=== PATIENT | female | born 1960 | race Caucasian/White ===

== ENCOUNTER 2023-09-02 08:54 | Emergency (ER) | payer OTHER, SELFPAY ==
--- NOTE | ~2023-09-02 | XR_ITS ---
EXAMINATION: XR ELBOW, RIGHT CLINICAL INFORMATION: Medial pain COMPARISON: None available. TECHNIQUE: AP, lateral, and oblique views of the right elbow. FINDINGS: The bones and soft tissues are normal. No fracture or joint effusion. Alignment is anatomic. Joint spaces are maintained. XR/XR elbow RT min 3V IMPRESSION: Normal right elbow.
[2023-09-02 09:18] VITALS: BP 161/79; PULSE 62; RESP 18; TEMP 36.6; O2SAT 99; BMI 31.6
--- NOTE | 2023-09-02 09:25 | ECG_ITS ---
Test Reason : CHEST PAIN Blood Pressure : / mmHG Vent. Rate : 063 BPM Atrial Rate : 063 BPM P-R Int : 146 ms QRS Dur : 098 ms QT Int : 418 ms P-R-T Axes : 067 -06 055 degrees QTc Int : 427 ms Normal sinus rhythm Minimal voltage criteria for LVH, may be normal variant ( [place] product ) Borderline ECG No previous ECGs available Referred By: Generic ED Physician Electronically Signed By:Ko Maguire
--- NOTE | 2023-09-02 09:25 | PC.NURSE ---
pt states right chest wall pain/r arm/r shoulder pain. tech doing ecg
[2023-09-02 12:04] LABS: MANUAL DIFF FLAG NO
[2023-09-02 12:12] LABS: Basophils Absolute Auto 0.1 X10*3/uL (0.0-0.2); Basophils Percent Auto 0.7 % (0-2); Eosinophils Absolute Auto 0.1 X10*3/uL (0.0-0.4); Eosinophils Percent Auto 1.4 % (0-4); Hematocrit 39.1 % (37.0-47.0); Hemoglobin 12.7 g/dl (12.0-16.0); Imm Gran Abs Auto 0.03 X10*3/uL (0.00-0.03); Imm Gran Pct Auto 0.3 % (0.0-0.4); Lymphocytes Absolute Auto 2.5 X10*3/uL (1.2-4.9); Lymphocytes Percent Auto 28.9 % (20-40); Mean Corpuscular HGB Conc 32.5 g/dl (31.0-35.0); Mean Corpuscular Volume 80.1 fL (80.0-98.0); Mean Platelet Volume 13.2 fL (9.4-12.3); Monocytes Absolute Auto 0.5 X10*3/uL (0.1-1.2); Monocytes Percent Auto 6.1 % (2-11); Neutrophils Absolute Auto 5.4 x10*3/uL (2.0-8.3); Neutrophils Percent Auto 62.6 % (45-73); Platelet Count 183 X10*3/uL (160-400); Red Blood Count 4.88 X10*6/uL (4.20-5.50); Red Cell Distribution Width 14.1 % (11.0-16.0); White Blood Count 8.6 X10*3/uL (4.8-10.8)
[2023-09-02 12:17] LABS: Anion Gap 12 (12-20); Blood Urea Nitrogen 19 mg/dL (9-16); Calcium 9.7 mg/dL (8.4-10.2); Carbon Dioxide 28 mmol/L (22-29); Chloride 106 mmol/L (96-108); Creatinine Clr Calc Pharmacy 95.5; Estimated Glomerular Filt Rate > 60; Glucose Random 93 mg/dL (60-115); Potassium 4.5 mmol/L (3.3-5.1); Sodium 141 mmol/L (135-145)
[2023-09-02 12:29] LABS: COVID-19 Test Negative (Negative); IDNOW Serial# 08D9AD1C; IDNOW Serial# 152EDE1D; Influenza A Negative (Negative); Influenza B2 Negative (Negative)
[2023-09-02] MEDS: Ketorolac Tromethamine 30 MG/ML VIAL IM (13:59)
[2023-09-02] MEDS: oxyCODONE HCl Immed Release 5 MG TABLET PO (13:59)
--- NOTE | 2023-09-02 14:00 | ED.EXTPRO ---
HPI - Extremity Problem General Chief complaint: Extremity Injury, Upper Stated complaint: pain from shoulder to elbow Time Seen by Provider: 09/02/23 12:44 Source: patient and old records reviewed Mode of arrival: ambulatory Limitations: no limitations History of Present Illness HPI Narrative: 63 yo [place] speaking female presents to the ER for evaluation of right elbow pain for the last 3 days. 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 She states she has been unable to sleep due to the pain. The pain is mostly located on the medial aspect of the right elbow. It is worse with range of motion and palpation. She reports the last couple of days she has numbness and tingling down the forearm on the medial aspect down into the hand. She denies any weakness. She also reports a bump on the outside of her right shoulder that her noticed, nontender. No shoulder pain. Normal range of motion of the shoulder. No chest pain or shortness a breath. No improvement in the pain in her elbow with naproxen or Tylenol at home. MD Complaint: extremity pain and joint swelling Onset (ago): day(s) Pain Consistency: constant Location: right and elbow Severity scale (1-10): 9 Quality: stabbing and aching Radiation: distal Relieving factors: nothing Exacerbating factors: range of motion and palpation Associated symptoms: denies other symptoms Related Data Previous Rx's ?Medication ?Instructions ?Recorded oxycodone 5 mg tablet 5 mg PO Q8H PRN severe pain (scale 09/02/23 score 7-10) #6 tabs prednisone 20 mg tablet 40 mg (2 x 20 mg) PO DAILY #10 tabs 09/02/23 Allergies Allergy/AdvReac Type Severity Reaction Status Date / Time ciprofloxacin Allergy Hives Verified 09/02/23 09:18 Review of Systems Review of Systems: Yes all other systems are reviewed and are negative PMFSH Social History Social History Advance Directives: No Advance Directives Information Provided: Yes Physical Exam Vital Signs: Vital Signs: Last Vital Signs Temp 98.1 F 09/02/23 16:31 Pulse 88 09/02/23 16:31 Resp 20 09/02/23 16:31 BP 118/76 09/02/23 16:31 Pulse Ox 99 09/02/23 16:31 O2 Del Method Room Air 09/02/23 16:31 BMI result Body Mass Index 31.6 Appearance: Alert. Oriented X3. No acute distress. HEENT: normal inspection CVS: Normal heart rate and rhythm. Pulses normal. Respiratory: No respiratory distress. lungs CTAB, nontender chest wall Skin: Skin warm and dry. Normal skin color. Normal skin turgor. No rashes. Extremities: normal inspection of all 4 extremities, no joint swelling. tenderness of the right medial elbow, normal passive ROM. Neuro: Oriented X 3. No motor deficit. +sensory deficit to the ulnar side of the anterior surface of the forearm. 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 Medications Administered Discontinued Medications Generic Name Dose Route Start Last Admin Trade Name Freq PRN Reason Stop Dose Admin Ketorolac Tromethamine 30 mg 09/02/23 13:25 09/02/23 13:59 Ketorolac Tromethamine 30 Mg/Ml Vial IM 09/02/23 13:26 30 mg ONCE ONE Administration Oxycodone HCl 5 mg 09/02/23 13:25 09/02/23 13:59 Oxycodone Hcl Immed Release 5 Mg Tablet PO 09/02/23 13:26 5 mg ONCE ONE Administration Medical Decision Making Medical Decision Making [facility] Narrative: 63-year-old [place]-speaking female who is right-hand dominant presents to the ER for evaluation of right elbow pain along with numbness and tingling down the medial aspect of the right forearm. She also reports some right shoulder pain. Normal ROM of the right shoulder, non-tender. right medial elbow tenderness w/ radiculopathy c/w ulnar nerve compression or tendonitis. normal strength. no other neuro symptoms no improvement with nsaid and tylenol at home. not sleeping due to pain will wrap in cesar wrap for compression, start trial of prednisone and short course of oxycodone for severe pain only. recommend ortho follow up if no improvement with these measures. 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 stable for d/c home Differential Diagnosis Differential Diagnoses: The differential diagnosis associated with the presentation includes shoulder bursitis, elbow bursisits, tendonitis, cardiac referred pain, CVA less likely Admission/Observation Consideration of admission/observation: Escalation of care including admission/observation considered Lab Data [facility] Lab Attestation statement: I reviewed the patient's lab results. cbc normal, negative troponin 09/02/23 11:58 09/02/23 11:58 Labs: Lab Results 09/02/23 Range/Units 11:58 WBC 8.6 (4.8-10.8) X10*3/uL RBC 4.88 (4.20-5.50) X10*6/uL Hgb 12.7 (12.0-16.0) g/dl Hct 39.1 (37.0-47.0) % MCV 80.1 (80.0-98.0) fL MCH 26.0 L (27.0-33.0) pg MCHC 32.5 (31.0-35.0) g/dl RDW 14.1 (11.0-16.0) % Plt Count 183 (160-400) X10*3/uL MPV 13.2 H (9.4-12.3) fL Immature Gran % (Auto) 0.3 (0.0-0.4) % Neut % (Auto) 62.6 (45-73) % Lymph % (Auto) 28.9 (20-40) % [place] % (Auto) 6.1 (2-11) % Eos % (Auto) 1.4 (0-4) % Baso % (Auto) 0.7 (0-2) % Lymph # (Auto) 2.5 (1.2-4.9) X10*3/uL [place] # (Auto) 0.5 (0.1-1.2) X10*3/uL Eos # (Auto) 0.1 (0.0-0.4) X10*3/uL Baso # (Auto) 0.1 (0.0-0.2) X10*3/uL Abs Immat Gran (auto) 0.03 (0.00-0.03) X10*3/uL Absolute Neuts (auto) 5.4 (2.0-8.3) x10*3/uL Absolute Nucleated RBC 0.000 (0.0-0.012) X10*3/uL Nucleated RBC % (auto) 0.0 (0.0-0.2) /100WBC Sodium 141 (135-145) mmol/L Potassium 4.5 (3.3-5.1) mmol/L Chloride 106 (96-108) mmol/L Carbon Dioxide 28 (22-29) mmol/L Anion Gap 12 (12-20) BUN 19 H (9-16) mg/dL Creatinine 0.67 (0.5-1.4) mg/dL Estim Creat Clear Calc 95.5 Estimated GFR > 60 Random Glucose 93 (60-115) mg/dL Calcium 9.7 (8.4-10.2) mg/dL COVID-19 ([facility]) Negative (Negative) COVID-19 Clin Com See Note Influenza Type A (CHE) Negative (Negative) Influenza Type B (CHE) Negative (Negative) Influenza A & B Note See Note Independent Interpretation I performed an independent interpretation of an: EKG and Plain X-Ray Interpretation: normal right elbow, no effusion or fracture ekg with NSR, HR 63 bpm, no ST segment elevations or depressions, normal QTc Radiology Impression Discussion of test interpretation with radiology: I have reviewed the radiologist's reading. Radiologist Impression: EXAMINATION: XR ELBOW, RIGHT CLINICAL INFORMATION: Medial pain COMPARISON: None available. TECHNIQUE: AP, lateral, and oblique views of the right elbow. FINDINGS: The bones and soft tissues are normal. No fracture or joint effusion. Alignment is anatomic. Joint spaces are maintained. XR/XR elbow RT min 3V IMPRESSION: Normal right elbow. External Record Review External record reviewed: Outpatient record and Prior outpatient labs Prescription Management I considered prescription management with: Pain Medication Critical Care Time Critical Care Time Critical Care Time: No Discharge Plan Discharge Clinical Impression: Epicondylitis elbow, medial Qualifiers: Laterality: right Qualified Code(s): M77.01 - Medial epicondylitis, right elbow Patient Disposition: Home, Self-Care Instructions: Tennis Elbow (ED) Additional Instructions: your xray was normal your labs were normal take the prescribed medications as directed take the prescribed oxycodone for severe pain only. do not drive after taking this medication continue tylenol 975 mg every 8 hours around the clock recommend following up with orthopedics for further evaluation if no improvement in your symptoms Prescriptions: New prednisone 20 mg tablet 40 mg PO DAILY Qty: 10 0RF oxycodone 5 mg tablet 5 mg PO Q8H PRN (Reason: severe pain (scale score 7-10)) Qty: 6 0RF Rx Instructions: Partial Fill upon patient request. Referrals: [facility] [Provider Group] Interventions: ED Discharge Assessment Last Done: 09/02/23 16:31 Discharge Date/Time: 09/02/23 16:32 Print Language: [place]
[2023-09-02 14:26] VITALS: BP 158/78; PULSE 64; RESP 18; TEMP 36.6; O2SAT 98
[2023-09-02 16:31] VITALS: BP 118/76; PULSE 88; RESP 20; TEMP 36.7; O2SAT 99
== END 2023-09-02 16:32 | disposition home or self-care (01) ==
PROVIDERS: Emergency Provider Emergency Medicine Emergency Medical Services; PCP Internal Medicine
DX: M77.01 Medial epicondylitis, right elbow (principal); Z11.52 Encounter for screening for COVID-19
CPT/HCPCS: 73080; 80048; 85025; 87502; 87635; 93005; 96372; 99284; J1885

== ENCOUNTER → 2023-09-02 09:25 | Outpatient (BNV) | payer OTHER, SELFPAY | PROVIDERS: Emergency Provider Emergency Medicine Emergency Medical Services; PCP Internal Medicine; Visit Provider Internal Medicine Cardiovascular Disease | DX: R07.9 Chest pain, unspecified (principal) | CPT/HCPCS: 93010 ==